=== PATIENT | male | born 1960 | race Native Hawaiian/Other Pacific Islander ===

== ENCOUNTER 2017-04-03 14:11 | Emergency (ER) | payer MEDICARE, SELFPAY ==
[2017-04-03 14:22] VITALS: BMI 22.1
[2017-04-03 14:26] VITALS: BP 147/94; PULSE 61; RESP 18; TEMP 98; O2SAT 100
--- NOTE | 2017-04-03 14:52 | C.PDOC ---
History Of Present Illness 56 y/o male presents to the ER complaining of a productive cough which has been present for 2 months. Patient reports that he has yellow sputum and blood streaks sometimes. Patient states that he was seen by his PMD 2 weeks ago and he did a course of Amoxicillin. He started feeling better but he still has a cough. Time Seen by Provider: 04/03/17 14:29 Chief Complaint (Nursing): Cough, Cold, Congestion History Per: Patient History/Exam Limitations: no limitations Onset/Duration Of Symptoms: Days Current Symptoms Are (Timing): Still Present Associated Symptoms: Cough, Sputum Past Medical History Reviewed: Historical Data, Nursing Documentation, Vital Signs Vital Signs: Last Vital Signs Temp 98 F 04/03/17 14:22 Pulse 61 04/03/17 14:22 Resp 18 04/03/17 14:22 BP 147/94 H 04/03/17 14:22 Pulse Ox 100 04/03/17 18:00 - Medical History PMH: COPD, Depression, HTN Surgical History: No Surg Hx Family History: States: No Known Family Hx - Social History Hx Tobacco Use: No Hx Alcohol Use: No Hx Substance Use: No - Immunization History Hx Tetanus Toxoid Vaccination: No Hx Influenza Vaccination: Yes Hx Pneumococcal Vaccination: No Review Of Systems Except As Marked, All Systems Reviewed And Found Negative. Constitutional: Negative for: Fever, Chills ENT: Negative for: Nose Congestion, Throat Pain Respiratory: Positive for: Cough (productive cough), Sputum (yellow sputum) Gastrointestinal: Negative for: Nausea, Vomiting, Abdominal Pain, Diarrhea Physical Exam - Physical Exam Appears: Non-toxic, No Acute Distress Skin: Normal Color, Warm Head: Atraumatic, Normacephalic Eye(s): bilateral: Normal Inspection, PERRL Ear(s): Bilateral: Normal Nose: Normal Oral Mucosa: Moist Throat: Normal, No Erythema, No Exudate Neck: Supple Chest: Symmetrical Cardiovascular: Rhythm Regular Respiratory: Normal Breath Sounds, No Accessory Muscle Use, No Rales, No Rhonchi , No Wheezing Gastrointestinal/Abdominal: Normal Exam, Soft, No Tenderness Extremity: Normal ROM Neurological/Psych: Oriented x3, Normal Speech, Normal Cognition, Normal Motor, Normal Sensation ED Course And Treatment O2 Sat by Pulse Oximetry: 100 (RA) Pulse Ox Interpretation: Normal - Other Rad No standard instances X-Ray: Viewed By Me, Read By Radiologist Interpretation: HISTORY: cough. COMPARISON: Chest x-ray performed 03/21/16. TECHNIQUE: Chest PA and lateral. FINDINGS: LUNGS: Hyperinflation may be seen in the setting of COPD. No focal consolidation. Please note that chest x- ray has limited sensitivity for the detection of pulmonary masses. PLEURA: No significant pleural effusion identified. No definite pneumothorax . CARDIOVASCULAR: Heart size appears within normal limits. OSSEOUS STRUCTURES: Mild degenerative changes of the spine. VISUALIZED UPPER ABDOMEN: Unremarkable. OTHER FINDINGS: None. IMPRESSION: Hyperinflation may be seen in the setting of COPD. Medical Decision Making Medical Decision Making: Plan: --CXR Patient has no fever and in no respiratory distress. Recommend cough medicine as needed. Follow up with PCP Disposition Counseled Patient/Family Regarding: Diagnosis, Need For Followup, Rx Given - Disposition Referrals: Francisco Demarco DO [Staff Provider] - Disposition: HOME/ ROUTINE Disposition Time: 14:49 Condition: GOOD Additional Instructions: Take cough medicine as needed Follow up with your primary doctor for further care Return to the emergency department at any time if symptoms persist or worsen. Prescriptions: Promethazine/Codeine [Phenergan/Codeine Oral Syrup] 5 ml PO Q6 #300 udc Instructions: Chronic Bronchitis (ED) Forms: [facility] ([place]) - POA Present On Arrival: None - Clinical Impression Clinical Impression: Bronchitis - PA / PRESIDENT [place] / Resident Statement / has reviewed & agrees with the documentation as recorded. - Scribe Statement The provider has reviewed the documentation as recorded by the Amanda Prince Provider Attestation All medical record entries made by the Melibe were at my direction and personally dictated by me. I have reviewed the chart and agree that the record accurately reflects my personal performance of the history, physical exam, medical decision making, and the department course for this patient. I have also personally directed, reviewed, and agree with the discharge instructions and disposition.
--- NOTE | 2017-04-03 15:29 | RAD ---
HISTORY: cough COMPARISON: Chest x-ray performed 03/21/16 TECHNIQUE: Chest PA and lateral FINDINGS: LUNGS: Hyperinflation may be seen in the setting of COPD. No focal consolidation. Please note that chest x-ray has limited sensitivity for the detection of pulmonary masses. PLEURA: No significant pleural effusion identified. No definite pneumothorax . CARDIOVASCULAR: Heart size appears within normal limits. OSSEOUS STRUCTURES: Mild degenerative changes of the spine. VISUALIZED UPPER ABDOMEN: Unremarkable. OTHER FINDINGS: None. IMPRESSION: Hyperinflation may be seen in the setting of COPD.
== END 2017-04-03 15:03 | disposition home or self-care (01) ==
LOC: C.ER 14:11
DX: J40 Bronchitis, not specified as acute or chronic (principal)